=== PATIENT | female | born 1955 | race Caucasian/White ===

== ENCOUNTER 2018-06-04 12:38 | Inpatient (IN) ==
--- NOTE | 2018-06-04 13:46 | ED ---
HPI General Chief complaint: Dental/Oral Stated complaint: Chin Swelling x Wednesday Source: patient Mode of arrival: ambulatory Limitations: no limitations History of Present Illness HPI narrative: Ms. Braden is a 62-year-old female with no significant PMH who presents to the ED with a chief complaint of "swelling of the right gland that is not going away." She first noticed swelling below the right angle of the mandible on Wednesday, and on Wednesday noticed pus in her oral cavity. She was seen by urgent care and was prescribed Amoxicillin/Clavulanate, which she has been taking as prescribed with no improvement. She describes the swelling as increased, and the pus has occasionally been thick yellow and green. She has been eating less and endorses trouble swallowing due to pain. No dyspnia or chest pain. Related Data Home Medications Medication Instructions Recorded Confirmed amoxicillin-pot clavulanate 1 tab PO BID 06/04/18 06/04/18 Allergies Allergy/AdvReac Type Severity Reaction Status Date / Time No Known Allergies Allergy Unverified 06/04/18 13:07 Review of Systems ROS: all other systems reviewed are negative [facility] Surgical History Surgical History History of tonsillectomy and adenoidectomy (Acute) Social History Social History Substance History: Active Abuse Smoking Status: Former smoker How Often Do You Have a Drink Containing Alcohol: 2 to 4 times a month Recent Travel in [facility] within the Last 8 Weeks: No Recent Out of Country Travel within the Last 8 Weeks: No Substance Abuse Detail Marijuana: Substance Use Status: Active Route Used Substance Abuse: Inhalation Immunization History Tetanus Immunization: Unsure Hx Influenza Vaccine This Season: No Exam Narrative Exam Narrative: GENERAL: Well-developed elderly white female patient currently and mild distress. Awake and oriented 3. No drooling. SKIN: Warm and dry. HEAD: Atraumatic. Normocephalic. EYES: Pupils equal and round. No scleral icterus. No injection or drainage. ENT: Mucosa pink and moist. No erythema or exudates. No uvular edema. No uvular , palatal, or tonsillar deviation. Airway patent. There is notable pus drainage next to the right base of tongue area. No subglottic fullness. No submandibular fullness. NECK: Trachea is midline. There is well-circumscribed, cystic lesion on the right neck below the mandible that causes pain on palpation. ORAL: There is erythema on the right base of the mouth and thick, milky-white discharge. CARDIOVASCULAR: Regular rate and rhythm. RESPIRATORY: No accessory muscle use. Clear to auscultation. Breath sounds equal bilaterally. GASTROINTESTINAL: Abdomen soft, non-tender, nondistended. Hepatic and splenic margins not palpable. MUSCULOSKELETAL: Extremities without clubbing, cyanosis, or edema. No obvious deformities. NEUROLOGICAL: Awake and alert. No obvious cranial nerve deficits. Motor grossly within normal limits. Five out of 5 muscle strength in the arms and legs. Normal speech. PSYCHIATRIC: Appropriate mood and affect; insight and judgment normal. Neck Neck: submandibular swelling (right-sided) Course Initial Documented Vital Signs Temperature 98.9 F 06/04/18 13:03 Pulse Rate 112 H 06/04/18 13:03 Respiratory Rate 16 06/04/18 13:03 Blood Pressure 151/79 H 06/04/18 13:03 Pulse Oximetry 99 06/04/18 13:03 Last Documented Vital Signs Temperature 98.9 F 06/04/18 13:03 Pulse Rate 112 H 06/04/18 13:03 Respiratory Rate 16 06/04/18 13:03 Blood Pressure 151/79 H 06/04/18 13:03 Pulse Oximetry 99 06/04/18 13:03 Medical Decision Making MDM Narrative Medical decision making narrative: CAT scan shows a 7 mm stone in the salivary duct, she has obvious pus draining out of the base of the tongue area, likely from [place]'s duct. CAT scan did not show any signs of abscess but does show signs of sialadenitis. She has no signs of airway compromise currently, is able to talk, not drooling, breathing on her own without issues. Case was discussed with Dr. Zurita of ENT who states that he would like her to receive clindamycin IV 900 q. 8, Decadron 10 IV q. 8, and be admitted as an observation at the [facility] due to precaution for the airway. He would like her to be medically admitted, case was discussed with Dr. Cintron for admission. Medical Screen Exam Complete: Yes Emergency Medical Condition: Yes Differential Diagnosis Differential Diagnosis: Submandibular abscess versus sialadenitis versus salivary gland abscess Lab Data Lab results reviewed: Yes I reviewed the patient's lab results. Result diagrams: 06/04/18 13:55 06/04/18 13:55 Lab Results 06/04/18 06/04/18 Range/Units 13:55 13:55 CBC w Diff Auto diff final WBC 10.7 (4.0-11.0) th/mm3 RBC 4.47 (4.00-5.30) mil/mm3 Hgb 14.5 (11.6-15.3) gm/dL Hct 42.5 (35.0-46.0) % MCV 95.2 (80.0-100.0) fL MCH 32.5 (27.0-34.0) pg MCHC 34.1 (32.0-36.0) % RDW 12.4 (11.6-17.2) % Plt Count 235 (150-450) th/mm3 MPV 8.1 (7.0-11.0) fL Neut % (Auto) 84.8 H (16.0-70.0) % Lymph % (Auto) 8.5 L (9.0-44.0) % [place] % (Auto) 4.8 (0.0-8.0) % Eos % (Auto) 0.5 (0.0-4.0) % Baso % (Auto) 1.4 (0.0-2.0) % Neut # (Auto) 9.1 H (1.8-7.7) th/mm3 Lymph # (Auto) 0.9 L (1.0-4.8) th/mm3 [place] # (Auto) 0.5 (0.0-0.9) th/mm3 Eos # (Auto) 0.1 (0.0-0.4) th/mm3 Baso # (Auto) 0.1 (0.0-0.2) th/mm3 WBC Differential . Differential Comment . Sodium 137 (136-145) meq/L Potassium 3.6 (3.5-5.1) meq/L Chloride 102 (98-107) meq/L Carbon Dioxide 28.0 (21.0-32.0) meq/L Anion Gap 7 (5-15) meq/L BUN 10 (7-18) mg/dL Creatinine 0.87 (0.50-1.00) mg/dL Estimated GFR 66 L (>89) mL/min Random Glucose 125 H (74-106) mg/dL Calcium 9.6 (8.5-10.1) mg/dL Imaging Data Attestation: I personally reviewed and interpreted this imaging study as follows : Radiologist's impression: Soft Tissue Neck CT 06/04/18 13:28 CONCLUSION: 1. Submandibular and sublingual gland sialoadenitis or sialolithiasis. Discharge Plan Discharge Details Anticipated Discharge Date: 06/04/18 Physicians Team ED Provider: Debra Garcia Primary Care Provider: Primary Care AngeliqueiEmerald Rxs /Orders / Referrals /Forms Prescriptions: No Action amoxicillin-pot clavulanate 875-125 mg Tablet 1 tab PO BID RF: 0 Discharge Interventions Interventions: Vital Signs Last Done: 06/04/18 13:07 Status ED Status: In Room
[2018-06-04 14:05] LABS: Baso # (Auto) 0.1 th/mm3 (0.0-0.2); Baso % (Auto) 1.4 % (0.0-2.0); Eos # (Auto) 0.1 th/mm3 (0.0-0.4); Eos % (Auto) 0.5 % (0.0-4.0); Hematocrit 42.5 % (35.0-46.0); Hemoglobin 14.5 gm/dL (11.6-15.3); Lymph # (Auto) 0.9 th/mm3 (1.0-4.8); Lymph % (Auto) 8.5 % (9.0-44.0); Mean Corpuscular HGB Conc 34.1 % (32.0-36.0); Mean Corpuscular Hemoglobin 32.5 pg (27.0-34.0); Mean Corpuscular Volume 95.2 fL (80.0-100.0); Mean Platelet Volume 8.1 fL (7.0-11.0); Mono # (Auto) 0.5 th/mm3 (0.0-0.9); Mono % (Auto) 4.8 % (0.0-8.0); Neut # (Auto) 9.1 th/mm3 (1.8-7.7); Neut % (Auto) 84.8 % (16.0-70.0); Platelet Count 235 th/mm3 (150-450); Red Blood Count 4.47 mil/mm3 (4.00-5.30); Red Cell Distribution Width 12.4 % (11.6-17.2); White Blood Count 10.7 th/mm3 (4.0-11.0)
[2018-06-04 14:13] LABS: Potassium 3.6 meq/L (3.5-5.1)
[2018-06-04 14:15] LABS: Calcium 9.6 mg/dL (8.5-10.1)
[2018-06-04] MEDS ORDERED: Clindamycin 600 mg/NS Premix 600 MG/50 ML PIGGYBACK IV.SIG ONE (14:15)
--- NOTE | 2018-06-04 14:58 | CT ---
EXAM DATE: 06/04/2018 2:54 PM EDT AGE/SEX: 62 years / Female INDICATIONS: Chin swelling 6 days CLINICAL DATA: This is the patient's initial encounter. Patient reports that signs and symptoms have been present for 4 - 6 days and indicates a pain score of 9/10. MEDICAL/SURGICAL HISTORY: None. Tonsillectomy. Adenoidectomy RADIATION DOSE: 11.14 CTDI (mGy) COMPARISON: No prior exams available for comparison. TECHNIQUE: Helical acquisition was performed using a multirow detector CT scanner during the adminis tration of 69ML ml Omnipaque 350 (iohexol) nonionic water-soluble contrast as a single exam dose. U sing automated exposure control and adjustment of the mA and/or kV according to patient size, radiati on dose was kept as low as reasonably achievable to obtain optimal diagnostic quality images. DICOM format image data is available electronically for review and comparison. FINDINGS: There is opacification of the left frontal sinus and right anterior ethmoid air cells posteriorly. Mi nimal mucosal thickening in the left and right maxillary sinuses. No air-fluid levels. The nasopharyn x is unremarkable. The right submandibular gland is swollen, hyperenhancing, and there is dilatation of the submandibular ducts within the substance of the gland, and there is a sialolith measuring 7.4 mm on axial image 42 directly anterior to the submandibular gland. This is characteristic of sialoade nitis and sialolithiasis. There is also enhancement of the right sublingual gland. Thyroid gland, hyp opharynx and larynx are unremarkable. CONCLUSION: 1. Submandibular and sublingual gland sialoadenitis or sialolithiasis. Electronically signed by: Jhonathan Ennis MD 06/04/2018 2:57 PM EDT
[2018-06-04] MEDS ORDERED: Dexamethasone Inj 20 MG/5 ML Vial IV.PUSH ONE (15:10)
[2018-06-04] MEDS ORDERED: Sod Chloride 0.9% Inj 1,000 ML IV.SIG SCH (15:15)
[2018-06-04] MEDS ORDERED: Diatrizoate Meglum/Diatrizoate Sod Liq 9 ML UDC ONE (15:22)
[2018-06-04] MEDS ORDERED: Bisacodyl 10 MG Supp RECTAL PRN (15:59)
[2018-06-04] MEDS ORDERED: Acetaminophen 325 MG Tablet PO PRN (15:59)
[2018-06-04] MEDS: Clindamycin 900 mg/NS Premix 900 MG/50 ML PIGGYBACK IV.SIG SCH (22:12)
[2018-06-04] MEDS: Dexamethasone Inj 20 MG/5 ML Vial IV.PUSH SCH (22:12)
--- NOTE | 2018-06-04 22:17 | P.HPIM ---
History of Present Illness Primary Care Physician: No Primary Care Physician History of Present Illness: 62 y/o female with no medical history presented to the ED with complaints of swelling of her right mandible area. She first noticed swelling below the right angle of the mandible on Wednesday, and on Wednesday noticed pus in her oral cavity. She was seen by urgent care and was prescribed Amoxicillin/Clavulanate , which she has been taking as prescribed with no improvement. She states the pain is a throbbing, constant, 7/10, with no radiation and associated chills. She states the Percocet has eased the pain. She denies any trouble swallowing, chest pain, sob, or fevers. Review of Systems All other systems reviewed negative except as stated in HPI PMFSH - History History Provided By: Patient - Medical / Surgical Hx Neg / Unobtainable Medical Problems Denied: Yes - Surgical History Surgical History: Surgical History (Last Reviewed 06/04/18 @ 13:58 by Debra Garcia MD) History of tonsillectomy and adenoidectomy - Family History Family History: Family History (Last Updated 06/05/18 @ 00:30 by HEATHER Vickers) Other Family history normal - Tobacco History Smoking Status: Former smoker - Alcohol History How Often Do You Have a Drink Containing Alcohol: 2 to 4 times a month - Substance Use History Substance History: Active Abuse - Substance Use Type Marijuana Status: Active Route Used: Inhalation - Travel History Recent Travel in the [place] Within the Last 8 Weeks: No Recent Travel Out of the Country Within the Last 8 Weeks: No - Immunization History Tetanus Immunization: Unsure Hx Influenza Vaccine This Season: No Medications and Allergies Active Medications: Active Medications Acetaminophen (Tylenol) 650 mg PO Q4H PRN PRN Reason: Headache, fever, pain 1-5 Al Hydroxide/Mg Hydroxide (Milk Of Magnesia Liq) 30 ml PO Q12H PRN PRN Reason: Mild Constipation Bisacodyl (Dulcolax Supp) 10 mg RECTAL DAILY PRN PRN Reason: SEVERE CONSITIPATION Dexamethasone Sodium Phosphate (Decadron Inj) 10 mg IV.PUSH Q8HR ILYA Last Admin: 06/04/18 22:12 Dose: 10 mg Sodium Chloride (Ns Inj) 1,000 mls @ 0 mls/hr IV.SIG BOLUS ILYA Last Infusion: 06/04/18 16:32 Dose: Infused Clindamycin/Sodium Chloride (Cleocin 900 Mg/Ns Premix) 900 mg in 50 mls @ 100 mls/hr IV.SIG Q8HR ILYA Last Admin: 06/04/18 22:12 Dose: 100 mls/hr Lactulose (Lactulose Liq) 30 ml PO DAILY PRN PRN Reason: SEVERE CONSITIPATION Ondansetron HCl (Zofran Inj) 4 mg IV.PUSH Q6H PRN PRN Reason: NAUSEA OR VOMITING Oxycodone/Acetaminophen (Percocet 5/325 Mg) 1 tab PO Q4H PRN PRN Reason: pain 1 to 10 Last Admin: 06/04/18 22:13 Dose: 1 tab Sennosides (Senokot) 17.2 mg PO Q12H PRN PRN Reason: Moderate Constipation Allergies Allergy/AdvReac Type Severity Reaction Status Date / Time No Known Allergies Allergy Unverified 06/04/18 13:07 Home Medications Medication Instructions Recorded Confirmed Type amoxicillin-pot clavulanate 1 tab PO BID 06/04/18 06/04/18 History Exam Vital signs: Vital Signs 06/04/18 13:03 06/04/18 13:07 06/04/18 19:55 Temperature 98.9 F Pulse Rate 112 H 85 72 Respiratory Rate 16 18 16 Blood Pressure 151/79 H 144/68 H 127/68 Pulse Oximetry 99 100 97 06/04/18 20:48 Temperature 98.3 F Pulse Rate 76 Respiratory Rate 18 Blood Pressure 120/67 Pulse Oximetry 96 Intake & Output 06/04/18 06/04/18 06/05/18 06:59 18:59 06:59 Intake Total 1050 / 1050 Balance 1050 / 1050 Weight 63 kg Intake: IV 1050 / 1050 Cleocin 600 mg/NS Premix 600 mg 50 / 50 In 50 ml @ 100 mls/hr IV.SIG NOW ONE Rx#:[id number] NS Inj 1,000 ML @ Wide Open IV. 1000 / 1000 SIG BOLUS ILYA Rx#:[id number] Narrative: GENERAL: This is a well-nourished, well-developed patient, in no apparent distress. HEENT: Eyes PERRLA, Right mandible swelling, no warmth CARDIOVASCULAR: Regular rate and rhythm without murmurs, gallops, or rubs. RESPIRATORY: Clear to auscultation. Breath sounds equal bilaterally. No wheezes , rales, or rhonchi. GASTROINTESTINAL: Abdomen soft, non-tender, nondistended. Normal active bowel sounds MUSCULOSKELETAL: Extremities without clubbing, cyanosis, or edema. NEURO: Alert & Oriented x4 to person, place, time, situation. Moves all ext x4 Results - Labs CBC & Chem 7: 06/04/18 13:55 06/04/18 13:55 Labs: Short CBC 06/04/18 Range/Units 13:55 WBC 10.7 (4.0-11.0) th/mm3 Hgb 14.5 (11.6-15.3) gm/dL Hct 42.5 (35.0-46.0) % Plt Count 235 (150-450) th/mm3 BMP 06/04/18 13:55 Sodium 137 Potassium 3.6 Chloride 102 Carbon Dioxide 28.0 BUN 10 Creatinine 0.87 Calcium 9.6 - Imaging Impressions Soft Tissue Neck CT 06/04/18 13:28 CONCLUSION: 1. Submandibular and sublingual gland sialoadenitis or sialolithiasis. Caprini VTE Risk Assessment Caprini VTE Risk Assessment: No/Low Risk (score <= 1) Caprini Risk Assessment Model: Point Value = 1 Point Value = 2 Point Value = 3 Point Value = 5 Age 41-60 Minor surgery BMI > 25 kg/m2 Swollen legs Varicose veins or History of unexplained or recurrent spontaneous Oral contraceptives or hormone replacement Sepsis (< 1 month) Serious lung disease, including pneumonia (< 1 month) Abnormal pulmonary function Acute myocardial infarction Congestive heart failure (< 1 month) History of inflammatory bowel disease Medical patient at bed rest Age 61-74 Arthroscopic surgery Major open surgery (> 45 min) Laparoscopic surgery (> 45 min) Malignancy Confined to bed (> 72 hours) Immobilizing plaster cast Central venous access Age >= 75 History of VTE Family history of VTE Factor V Leiden Prothrombin [id number] Lupus anticoagulant Anticardiolipin antibodies Elevated serum homocysteine Heparin-induced thrombocytopenia Other congenital or acquired thrombophilia Stroke (< 1 month) Elective arthroplasty Hip, pelvis, or leg fracture Acute spinal cord injury (< 1 month) Prophylaxis Regimen: Total Risk Factor Score Risk Level Prophylaxis Regimen 0-1 Low Early ambulation 2 Moderate Order ONE of the following: *Sequential Compression Device (SCD) *Heparin 5000 units SQ BID 3-4 Higher Order ONE of the following medications: *Heparin 5000 units SQ TID *Enoxaparin/Lovenox 40 mg SQ daily (WT < 150 kg, CrCl > 30 mL/min) *Enoxaparin/Lovenox 30 mg SQ daily (WT < 150 kg, CrCl > 10-29 mL/min) *Enoxaparin/Lovenox 30 mg SQ BID (WT < 150 kg, CrCl > 30 mL/min) AND/OR *Sequential Compression Device (SCD) 5 or more Highest Order ONE of the following medications: *Heparin 5000 units SQ TID (Preferred with Epidurals) *Enoxaparin/Lovenox 40 mg SQ daily (WT < 150 kg, CrCl > 30 mL/min) *Enoxaparin/Lovenox 30 mg SQ daily (WT < 150 kg, CrCl > 10-29 mL/min) *Enoxaparin/Lovenox 30 mg SQ BID (WT < 150 kg, CrCl > 30 mL/min) AND *Sequential Compression Device (SCD) Assessment and Plan - Plan 62 y/o female with no medical history presented to the ED with complaints of swelling of her right mandible area. Submandibular and sublingual gland sialoadenitis Neck CT reviewed and shows Submandibular and sublingual gland sialoadenitis or sialolithiasis. -Consult to ENT for evaluation -Clindamycin IV -Pain management with PO Percocet, Toradol x1 DVT prophylaxis: SCDs Discussed Condition With: Patient and RN
[2018-06-04] MEDS ORDERED: Ketorolac Inj 30 MG/ML (IVP) Vial IV.PUSH ONE (23:37)
[2018-06-05] MEDS: Clindamycin 900 mg/NS Premix 900 MG/50 ML PIGGYBACK IV.SIG SCH ×3 (07:37→21:28)
[2018-06-05] MEDS: Dexamethasone Inj 20 MG/5 ML Vial IV.PUSH SCH ×3 (07:38→21:28)
--- NOTE | 2018-06-05 09:44 | P.PN ---
Subjective Interval history: Follow-up visit right submandibular and sublingual gland sialoadenitis. Patient seen and examined today. Reports she felt a lot better. Continues to have trouble with swallowing, painful swallowing secondary to the swelling otherwise she states that she is able to tolerate soft foods last night. Denies SOB/ dyspnea. Denies chest pain, palpitations, headaches, dizziness. Denies fevers, chills, n/v/d. Denies dysuria. Physical Exam Vital signs: Vital Signs 06/04/18 13:03 06/04/18 13:07 06/04/18 19:55 Temperature 98.9 F Pulse Rate 112 H 85 72 Respiratory Rate 16 18 16 Blood Pressure 151/79 H 144/68 H 127/68 Pulse Oximetry 99 100 97 06/04/18 20:48 06/04/18 22:45 06/04/18 23:31 Temperature 98.3 F 98.3 F Pulse Rate 76 60 Respiratory Rate 18 20 16 Blood Pressure 120/67 99/55 L Pulse Oximetry 96 97 06/05/18 03:20 06/05/18 07:51 Temperature 98.4 F Pulse Rate 61 Respiratory Rate 20 16 Blood Pressure 103/67 Pulse Oximetry 99 Intake & Output 06/04/18 06/05/18 06/05/18 18:59 06:59 18:59 Intake Total 1050 / 1050 850 / 850 50 / 50 Balance 1050 / 1050 850 / 850 50 / 50 Weight 63 kg Intake: IV 1050 / 1050 50 / 50 50 / 50 Cleocin 600 mg/NS Premix 600 mg 50 / 50 In 50 ml @ 100 mls/hr IV.SIG NOW ONE Rx#:[id number] Cleocin 900 mg/NS Premix 900 mg 50 / 50 50 / 50 In 50 ml @ 100 mls/hr IV.SIG Q8HR ILYA Rx#:[id number] NS Inj 1,000 ML @ Wide Open IV. 1000 / 1000 SIG BOLUS ILYA Rx#:[id number] Oral 800 / 800 Other: # Voids 4 Date of Last Bowel Movement 06/04/18 Weight On Admission 63 kg Narrative: GENERAL: This is a well-nourished, well-developed patient, in no apparent distress. SKIN: Warm and dry HEENT: Normocephalic. Pupils equal round and reactive. Nose without bleeding. Airway patent. Right mandibular swelling diminished, no erythema, small pustular abscess noted. NECK: Trachea midline. Supple. CARDIOVASCULAR: Regular rate and rhythm without murmurs, gallops, or rubs. RESPIRATORY: Clear to auscultation. Breath sounds equal bilaterally. No wheezes , rales, or rhonchi. GASTROINTESTINAL: Abdomen soft, non-tender, nondistended. Bowel Sounds normoactive x4. MUSCULOSKELETAL: Extremities without clubbing, cyanosis, or edema. NEUROLOGICAL: Awake and alert. Oriented to time, place, person. No focal neuro deficit. Moves all extremities. Normal speech. Results - Labs CBC & Chem 7: 06/04/18 13:55 06/04/18 13:55 Laboratory Results - last 24 hr 06/04/18 06/04/18 13:55 13:55 CBC w Diff Auto diff final WBC 10.7 RBC 4.47 Hgb 14.5 Hct 42.5 MCV 95.2 MCH 32.5 MCHC 34.1 RDW 12.4 Plt Count 235 MPV 8.1 Neut % (Auto) 84.8 H Lymph % (Auto) 8.5 L [place] % (Auto) 4.8 Eos % (Auto) 0.5 Baso % (Auto) 1.4 Neut # (Auto) 9.1 H Lymph # (Auto) 0.9 L [place] # (Auto) 0.5 Eos # (Auto) 0.1 Baso # (Auto) 0.1 WBC Differential . Differential Comment . Sodium 137 Potassium 3.6 Chloride 102 Carbon Dioxide 28.0 Anion Gap 7 BUN 10 Creatinine 0.87 Estimated GFR 66 L Random Glucose 125 H Calcium 9.6 - Imaging Impressions Soft Tissue Neck CT 06/04/18 13:28 CONCLUSION: 1. Submandibular and sublingual gland sialoadenitis or sialolithiasis. Assessment and Plan - Plan 62 y/o female with no medical history presented to the ED with complaints of swelling of her right mandible area. Submandibular and sublingual gland sialoadenitis Neck CT reviewed and shows Submandibular and sublingual gland sialoadenitis or sialolithiasis. -Consult to ENT for evaluation -Continue Clindamycin IV -Blood cultures preliminary no growth to date -Pain management with PO Percocet -Monitor DVT prop SCDs Code Status: Full code Discussed Condition With: Patient, nursing Discharge Planning: DC home when clinically improved. Pending ENT consult
--- NOTE | 2018-06-05 23:04 | MB ---
cc: Colin Zurita MD DATE: 06/05/2018 CHIEF COMPLAINT: Right salivary duct stone with sialoadenitis. HISTORY OF PRESENT ILLNESS: The patient is a pleasant 62-year-old female with a recently diagnosed right salivary duct stone with acute inflammation and infection. CT scan revealed a 7 mm stone right next to the gland of the submandibular duct. There was acute inflammation surrounding this as well. The patient has been admitted. HISTORY: The patient is in the emergency room and has improved somewhat overnight with clindamycin and Decadron. She is tolerating her secretions and speaking well when I see her in the ED. She is tolerating oral fluids. PHYSICAL EXAMINATION: On examination, the patient is stable. Right neck is still somewhat edematous with a mildly enlarged, tender right salivary gland. The floor of mouth is soft and although she said there was pus earlier, there is no active pus coming out of the submandibular [place] duct. On flexible fiberoptic laryngoscopy, the airway is stable and patent. ASSESSMENT: Right submandibular duct stone, 7 mm in size. PLAN: Continue IV antibiotics and steroids for likely another 36 hours and then two weeks of clindamycin 300 mg p.o. t.i.d. as well as Medrol Dosepak. I discussed the importance of increased hydration, as this is a major risk factor for recurrent symptoms. She notes that she has been seen numerous times over the years for dehydration. We discussed salivary gland massage, warm compresses, sialogogues. I discussed with the patient the options of removal using an open approach vs endoscopic and the risks and benefits of each. This would ideally be performed after the acute infection has subsided as an outpatient once the inflammation has decreased to minimize any potential excessive scarring or risk to the surrounding nerves. The patient voiced understanding of the above, with the basics regarding open versus endoscopic approaches. Although endoscopic approach is not performed locally, it clearly has numerous advantages. The patient should continue to improve with IV antibiotic and steroids over the next 36 hours, at which time the patient should likely be stable for discharge to be followed as an outpatient. Colin Zurita MD PCC/rw , 10:32 PM , 10:41 PM NICCI
[2018-06-06 06:36] LABS: Hematocrit 41.9 % (35.0-46.0); Hemoglobin 14.2 gm/dL (11.6-15.3); Mean Corpuscular HGB Conc 33.8 % (32.0-36.0); Mean Corpuscular Hemoglobin 32.4 pg (27.0-34.0); Mean Corpuscular Volume 95.8 fL (80.0-100.0); Mean Platelet Volume 8.9 fL (7.0-11.0); Platelet Count 262 th/mm3 (150-450); Red Blood Count 4.37 mil/mm3 (4.00-5.30); White Blood Count 12.8 th/mm3 (4.0-11.0)
[2018-06-06] MEDS: Dexamethasone Inj 20 MG/5 ML Vial IV.PUSH SCH ×3 (06:39→22:40)
[2018-06-06] MEDS: Clindamycin 900 mg/NS Premix 900 MG/50 ML PIGGYBACK IV.SIG SCH ×2 (06:39→14:44)
[2018-06-06 06:52] LABS: Calcium 9.6 mg/dL (8.5-10.1); Carbon Dioxide 26.1 meq/L (21.0-32.0); Potassium 4.2 meq/L (3.5-5.1)
--- NOTE | 2018-06-06 09:01 | P.PN ---
Subjective Interval history: Follow-up visit right submandibular and sublingual gland sialoadenitis. Patient seen and examined today. Reports feeling weak, tired. States that she is feeling the right mandibular area is still swollen and with difficulty slightly with swallowing. Able to tolerate p.o. food yesterday. Denies SOB/ dyspnea. Denies chest pain, palpitations, headaches, dizziness. Denies fevers, chills, n/v/d. Denies dysuria. Physical Exam Vital signs: Vital Signs 06/05/18 12:50 06/05/18 16:53 06/05/18 19:40 Temperature 98.4 F 98.5 F 97.5 F L Pulse Rate 60 67 64 Respiratory Rate 14 16 17 Blood Pressure 111/70 107/55 L 127/60 Pulse Oximetry 98 98 97 06/05/18 23:26 06/06/18 03:32 06/06/18 03:49 Temperature 97.8 F 98.5 F Pulse Rate 61 65 Respiratory Rate 16 16 Blood Pressure 119/57 L 105/56 L 110/76 Pulse Oximetry 97 98 06/06/18 04:20 06/06/18 07:54 Temperature 98.6 F Pulse Rate 61 Respiratory Rate 21 16 Blood Pressure 122/65 Pulse Oximetry 100 Intake & Output 06/05/18 06/06/18 06/06/18 18:59 06:59 18:59 Intake Total 100 / 100 50 / 50 50 / 50 Balance 100 / 100 50 / 50 50 / 50 Intake: IV 100 / 100 50 / 50 50 / 50 Cleocin 900 mg/NS Premix 900 mg 100 / 100 50 / 50 50 / 50 In 50 ml @ 100 mls/hr IV.SIG Q8HR [facility] Rx#:[id number] Other: # Voids 3 3 Date of Last Bowel Movement 06/03/18 06/04/18 Narrative: GENERAL: This is a well-nourished, well-developed patient, in no apparent distress. SKIN: Warm and dry HEENT: Normocephalic. Pupils equal round and reactive. Nose without bleeding. Airway patent. Right mandibular swelling, no erythema, small pustular abscess noted. NECK: Trachea midline. Supple. CARDIOVASCULAR: Regular rate and rhythm without murmurs, gallops, or rubs. RESPIRATORY: Clear to auscultation. Breath sounds equal bilaterally. No wheezes , rales, or rhonchi. GASTROINTESTINAL: Abdomen soft, non-tender, nondistended. Bowel Sounds normoactive x4. MUSCULOSKELETAL: Extremities without clubbing, cyanosis, or edema. NEUROLOGICAL: Awake and alert. Oriented to time, place, person. No focal neuro deficit. Moves all extremities. Normal speech. Results - Labs CBC & Chem 7: 06/06/18 05:14 06/06/18 05:14 Laboratory Results - last 24 hr 06/06/18 06/06/18 05:14 05:14 WBC 12.8 H RBC 4.37 Hgb 14.2 Hct 41.9 MCV 95.8 MCH 32.4 MCHC 33.8 RDW 13.0 Plt Count 262 MPV 8.9 Prelim Diff (Auto) Manual diff required Differential Comment . Sodium 142 Potassium 4.2 Chloride 106 Carbon Dioxide 26.1 Anion Gap 10 BUN 16 Creatinine 0.80 Estimated GFR 72 L Random Glucose 142 H Calcium 9.6 Microbiology 06/04/18 13:55 Blood - Peripheral Aerobic Blood Culture - Preliminary No growth in 1 day 06/04/18 13:55 Blood - Peripheral Anaerobic Blood Culture - Preliminary No growth in 1 day 06/04/18 14:00 Blood - Peripheral Aerobic Blood Culture - Preliminary No growth in 1 day 06/04/18 14:00 Blood - Peripheral Anaerobic Blood Culture - Preliminary No growth in 1 day Assessment and Plan - Plan 62 y/o female with no medical history presented to the ED with complaints of swelling of her right mandible area. Submandibular and sublingual gland sialoadenitis Neck CT reviewed and shows Submandibular and sublingual gland sialoadenitis or sialolithiasis. -ENT consulted appreciate recommendations. States to continue with IV antibiotic for 36 hours switch over to clindamycin p.o. 2 weeks 300 mg p.o. 3 times daily as well as Medrol Dosepak. She will need to follow-up with Dr. Zurita in the outpatient for possible procedure. -Continue Clindamycin IV -Blood cultures preliminary no growth to date -Pain management with PO Percocet -Monitor DVT prop SCDs Code Status: Full Code Discussed Condition With: Patient, nursing Discharge Planning: DC home tomorrow am with PO ABX and medrol dose pack
[2018-06-06 12:15] LABS: Lymphocytes 7 % (9-44)
[2018-06-06 12:16] LABS: Platelet Estimate Normal (Normal); Platelet Morphology Normal (Normal); RBC Morphology Normal (Normal)
[2018-06-07] MEDS: Clindamycin 900 mg/NS Premix 900 MG/50 ML PIGGYBACK IV.SIG SCH ×2 (00:45→07:09)
[2018-06-07 03:30] VITALS: PULSE 66
[2018-06-07] MEDS: Dexamethasone Inj 20 MG/5 ML Vial IV.PUSH SCH (07:27)
[2018-06-07 07:40] VITALS: BP 137/61; RESP 18; TEMP 98.8; O2SAT 99
--- NOTE | 2018-06-07 09:56 | P.PN ---
Subjective Interval history: Follow-up visit right submandibular and sublingual gland sialoadenitis. Reports feeling better, no fever, right mandibular area with less swelling, able to swallow li better but prefers to drink liquids. No fever, no chills. Has been tolerating diet relatively well. No chest pain, no palpitations, no headaches, no dizziness. Anxious to go home. Physical Exam Vital signs: Vital Signs 06/06/18 12:00 06/06/18 16:00 06/06/18 19:35 Temperature 97.6 F 99.1 F 97.6 F Pulse Rate 64 63 64 Respiratory Rate 16 16 17 Blood Pressure 123/58 L 133/63 123/62 Pulse Oximetry 98 98 96 06/06/18 23:34 06/07/18 03:29 06/07/18 07:36 Temperature 98.5 F 97.4 F L 98.8 F Pulse Rate 64 66 66 Respiratory Rate 16 16 18 Blood Pressure 115/60 121/59 L 137/61 Pulse Oximetry 99 98 99 Intake & Output 06/06/18 06/07/18 06/07/18 18:59 06:59 18:59 Intake Total 100 / 100 170 / 170 50 / 50 Balance 100 / 100 170 / 170 50 / 50 Intake: IV 100 / 100 50 / 50 50 / 50 Cleocin 900 mg/NS Premix 900 mg 100 / 100 50 / 50 50 / 50 In 50 ml @ 100 mls/hr IV.SIG Q8HR [facility] Rx#:[id number] Oral 120 / 120 Other: # Voids 1 1 Narrative: GENERAL: This is a well-nourished, well-developed patient, in no apparent distress. SKIN: Warm and dry HEENT: Normocephalic. Pupils equal round and reactive. Nose without bleeding. Airway patent. Right mandibular swelling, no erythema, small pustular abscess noted. NECK: Trachea midline. Supple. CARDIOVASCULAR: Regular rate and rhythm without murmurs, gallops, or rubs. RESPIRATORY: Clear to auscultation. Breath sounds equal bilaterally. No wheezes , rales, or rhonchi. GASTROINTESTINAL: Abdomen soft, non-tender, nondistended. Bowel Sounds normoactive x4. MUSCULOSKELETAL: Extremities without clubbing, cyanosis, or edema. NEUROLOGICAL: Awake and alert. Oriented to time, place, person. No focal neuro deficit. Moves all extremities. Normal speech. Results - Labs CBC & Chem 7: 06/06/18 05:14 06/06/18 05:14 Laboratory Results - last 24 hr 06/06/18 05:14 WBC Differential Manual diff final Seg Neuts % (Manual) 87 H Band Neuts % (Manual) 6 Lymphocytes % (Manual) 7 L Abs Neuts (Manual) 11.9 H Platelet Estimate Normal Platelet Morphology Normal RBC Morphology Normal Microbiology 06/04/18 13:55 Blood - Peripheral Aerobic Blood Culture - Preliminary No growth in 2 days 06/04/18 13:55 Blood - Peripheral Anaerobic Blood Culture - Preliminary No growth in 2 days 06/04/18 14:00 Blood - Peripheral Aerobic Blood Culture - Preliminary No growth in 2 days 06/04/18 14:00 Blood - Peripheral Anaerobic Blood Culture - Preliminary No growth in 2 days Assessment and Plan - Assessment (1) Sialadenitis Code(s): K11.20 - Sialoadenitis, unspecified Status: Acute - Plan 62 y/o female with no medical history presented to the ED with complaints of swelling of her right mandible area. Submandibular and sublingual gland sialoadenitis Neck CT reviewed and shows Submandibular and sublingual gland sialoadenitis or sialolithiasis. afebrile, swelling improved. -ENT consulted appreciate recommendations. States to continue with IV antibiotic for 36 hours switch over to clindamycin p.o. 2 weeks 300 mg p.o. 3 times daily as well as Medrol Dosepak. She will need to follow-up with Dr. Zurita as outpatient for possible procedure. -Blood cultures preliminary no growth to date -Pain management with PO Percocet -Monitor DVT prop SCDs Stable for dc, needs to f/u Dr. Zurita Diet as tolerated, maintain adequate fluid intake OTC Probiotics while on abx can return to work next week Activity as tolerated d/w rn, CM, pt.
--- NOTE | 2018-06-07 18:56 | P.DS ---
<Roxanne Staton - Last Filed: 06/07/18 18:52> Date of admission: 06/04/18 15:23 Primary care physician: No Primary Care Physician Attending physician on discharge: Koffi Nuñez Anticipated date of discharge: 06/07/18 Brief History from admission: 62 y/o female with no medical history presented to the ED with complaints of swelling of her right mandible area. She first noticed swelling below the right angle of the mandible on Wednesday, and on Wednesday noticed pus in her oral cavity. She was seen by urgent care and was prescribed Amoxicillin/Clavulanate , which she has been taking as prescribed with no improvement. She states the pain is a throbbing, constant, 7/10, with no radiation and associated chills. She states the Percocet has eased the pain. She denies any trouble swallowing, chest pain, sob, or fevers. DS: Diagnosis - Discharge Diagnosis (1) Sialadenitis Status: Acute DS: Medications - Discharge Medications Prescriptions: methylprednisolone [Medrol ([place])] See Taper PO PER PKG DIR #1 each DS: Summary Hospital Course: 62 y/o female with no medical history presented to the ED with complaints of swelling of her right mandible area. Was found with Submandibular and sublingual gland sialoadenitis Neck CT reviewed and showed Submandibular and sublingual gland sialoadenitis or sialolithiasis. Was started on empiric antibiotics, cultures were obtained. ENT consulted. ENT consulted appreciated recommendations. Stated to continue with IV antibiotic for 36 hours switch over to clindamycin p.o. 2 weeks 300 mg p.o. 3 times daily as well as Medrol Dosepak. She will need to follow-up with Dr. Zurita as outpatient for possible procedure. Blood cultures preliminary no growth to date Pain management with PO Percocet was adequate Patient improved, mandible swelling lessened. Was able to take p.o. fluids and diet, occ. complained of difficulty swallowing. no aspiration observed. No fever, labs stable Cleared for discharge Instructed to f/u with Dr. Zurita. May return to work in one week Continue with soft diet. - Time Spent with Patient Total time spent providing and/or coordinating discharge services: Less than 30 minutes - Quality: VTE Deep Vein Thrombosis/Pulmonary Embolism Present on Admission: No Exam Vital signs: Vital Signs 06/06/18 19:35 06/06/18 23:34 06/07/18 03:29 Temperature 97.6 F 98.5 F 97.4 F L Pulse Rate 64 64 66 Respiratory Rate 17 16 16 Blood Pressure 123/62 115/60 121/59 L Pulse Oximetry 96 99 98 06/07/18 07:36 Temperature 98.8 F Pulse Rate 66 Respiratory Rate 18 Blood Pressure 137/61 Pulse Oximetry 99 Intake & Output 06/06/18 06/07/18 06/07/18 18:59 06:59 18:59 Intake Total 100 / 100 170 / 170 50 / 50 Balance 100 / 100 170 / 170 50 / 50 Intake: IV 100 / 100 50 / 50 50 / 50 Cleocin 900 mg/NS Premix 900 mg 100 / 100 50 / 50 50 / 50 In 50 ml @ 100 mls/hr IV.SIG Q8HR [facility] Rx#:[id number] Oral 120 / 120 Other: # Voids 1 1 Results Procedures completed during hospitalization: none Labs on day of discharge: Preliminary micro results at discharge 06/04/18 13:55 Aerobic Blood Culture - Preliminary Blood - Peripheral No growth in 3 days Anaerobic Blood Culture - Preliminary No growth in 3 days 06/04/18 14:00 Aerobic Blood Culture - Preliminary Blood - Peripheral No growth in 3 days Anaerobic Blood Culture - Preliminary No growth in 3 days - Impressions ITS Impressions Soft Tissue Neck CT 06/04/18 13:28 CONCLUSION: 1. Submandibular and sublingual gland sialoadenitis or sialolithiasis. <Koffi Nuñez - Last Filed: 07/25/18 13:54> Date of admission: 06/06/18 13:20 Primary care physician: No Primary Care Physician DS: Summary - Time Spent with Patient Total time spent providing and/or coordinating discharge services: Results - Impressions ITS Impressions Soft Tissue Neck CT 06/04/18 13:28 CONCLUSION: 1. Submandibular and sublingual gland sialoadenitis or sialolithiasis. Discharge Plan - Discharge Order Discharge Orders: Discharge Order (Routine); Ordered 06/07/18 Ordered By: Roxanne Staton - Discharge Details Anticipated Discharge Date: 06/07/18 - Physicians Team Primary Care Provider: Primary Care Mariano,Emerald Attending Provider: Koffi Nuñez Other Providers: Colin Zurita MD
== END 2018-06-07 10:55 | disposition home or self-care (01) ==
LOC: PHEDA 12:38 → PHED 12:38 → OBSVTOIN 15:23 → INTOOBSV 15:23 → PHEDA 19:57 → NEPFCDU 20:23
PROVIDERS: ADMIT Hospitalist; ATTEND Hospitalist